=== PATIENT | male | born 1980 | race Caucasian/White ===

== ENCOUNTER 2024-12-02 09:14 | Emergency (ER) | payer OTHER, SELFPAY ==
[2024-12-02 09:16] VITALS: BP 123/83; PULSE 78; RESP 18; TEMP 37.1; O2SAT 98; BMI 29.5
--- NOTE | 2024-12-02 09:32 | VDLE_ITS ---
Reason For Study Reason For Study: Pain RLE RIGHT LEFT GSV is normal. CFV is compressible, spontaneous, phasic, competent, CFV is compressible, spontaneous, phasic, competent and demonstrates normal augmentation. and demonstrates normal augmentation. Rt FV prox is compressible Rt FV mid and distal, Rt PopV, Rt T/P Trunk, Rt PTV, and Rt PeroV are DILATED and NON COMPRESSIBLE consistent with acute DVT Rt SSV is DILATED and NON COMPRESSIBLE consistent with acute SVT. Procedure This is a venous duplex using B-mode, color flow and spectral Doppler. Exam performed portable in ED. A preliminary report was called and/or faxed to Dr. Robertson. VL/Venous Duplex US, Unilateral Interpretation Summary Acute deep vein thrombosis noted in the right femoral vein, popliteal vein, tib ioperoneal trunk vein, posterior tibial vein, peroneal vein. Acute superficial vein thrombosis noted in the right small saphenous vein. Ordering Physician: Ryan Robertson Performed By: María Arora RDCS, RVT
--- NOTE | 2024-12-02 09:32 | EX.ED.DYSGE1 ---
HPI History of Present Illness Chief Complaint: Lower Extremity Injury Narrative Narrative: Patient is a 44-year-old male with a past medical history of DVT who presents to the emergency department the chief complaint of right calf pain and swelling. He states that he noted that this started on Sunday and he notes that this moved to the back of his thigh last night. He states that he recently traveled to [place]. Patient states that his previous DVT was after he stopped running marathons. He states that he is on any blood thinning medications currently. Denies chest pain or shortness of breath [facility] Medical History Hx of deep venous thrombosis Home Medications ?Medication ?Instructions ?Recorded ?Last Taken ?Type apixaban 5 mg (74 tabs) tablets in See Rx Instructions PO .COMPLEX 12/02/24 Unknown Rx a dose pack (Eliquis DVT-PE Treat #74 tabs 30D Start) Allergy/AdvReac Type Severity Reaction Status Date / Time No Known Allergies Allergy Verified 12/02/24 09:15 Social History Smoking Status: Never smoker ROS ROS ED ROS Narrative Constitutional: Denies fevers, chills, headaches Cardiovascular: Denies chest pain Respiratory: Denies shortness of breath Neurological: Denies numbness, weakness, tingling Musculoskeletal: Complains of right calf pain and right lower extremity swelling as noted above Skin: Denies any rashes or lesions EXAM Physical Exam Narrative Exam Narrative: General: Patient was lying in bed rest comfortably did not appear to be in acute distress Head: Atraumatic, normocephalic Eyes: PERRL bilaterally, EOMI bilateral, no conjunctival injection noted Neck: Soft, supple, trachea midline Cardiovascular: Regular rate and rhythm Musculoskeletal: Right lower extremity compartments are soft and compressible, tenderness palpation the posterior calf region on the right side Extremities: +5/5 strength noted in the bilateral upper and lower extremities, DP pulses noted to be +2/4 in the right lower extremity Neurological: Patient follow commands knew that he was at [facility] year is 2024. Sensation grossly intact in the bilateral lower extremities Skin: Warm, dry, intact no rashes or lesions noted Const Vital Signs: 12/02/24 09:16 Temperature 98.7 F Temperature Source Oral Pulse Rate 78 Respiratory Rate 18 Blood Pressure 123/83 H Blood Pressure Mean 96 Pulse Ox 98 Oxygen Delivery Method Room Air MDM MDM MDM Narrative Medical decision making narrative: Patient is a 44-year-old male who presented to the emergency department chief complaint of right lower extremity pain and swelling concern for DVT. On the differential diagnose includes but limited to musculoskeletal strain, DVT, superficial venous thrombosis, thrombophlebitis. Once workup is obtained reviewed he will be reevaluated. Patient does have significant DVT clot burden in his right lower extremity from the right femoral vein mid and distal, right popliteal vein, right T/P trunk right PTV and right paroV are noncompressible consistent with acute DVT he also has right SSV dilated noncompressible consistent with acute superficial venous thrombosis Reached out to Dr. Vera's office spoke with his physician curatorial assistant and they are recommending Eliquis and follow-up with them in the outpatient setting. I discussed this plan with the patient he is agreeable this plan. He is advised that if he falls and hits his head while on blood thinning medications he should go to the emergency department immediately. He was advised that if he cuts his himself he will have prolonged bleeding. Patient was advised that he needs to avoid any type of NSAID for pain control while on this medication as well. He is agreeable this plan as well as significant other bedside all question concerns answered he is discharged home in stable condition. Radiography Diagnostic Testing: Clinical Impression(s) from Imaging Studies Venous Doppler Study 12/02/24 09:32 Interpretation Summary Acute deep vein thrombosis noted in the right femoral vein, popliteal vein, tibioperoneal trunk vein, posterior tibial vein, peroneal vein. Acute superficial vein thrombosis noted in the right small saphenous vein. Ordering Physician: Ryan Robertson Performed By: María Arora, NAZARIO, RVT Discharge Plan Triage Chief Complaint: Lower Extremity Injury ED Provider: Ryan Robertson Dx/Rx/DC Orders Clinical Impression: Deep vein thrombosis (DVT) of right lower extremity Prescriptions: New Eliquis DVT-PE Treat 30D Start 5 mg (74 tabs) tablets,dose pack See Rx Instructions .ROUTE .COMPLEX Qty: 74 0RF Rx Instructions: orally per package directions Primary Care Provider: Care Physician,No Primary Referrals: Care Physician,No Primary [Primary Care Provider] - Sincere Vera MD [Med Staff - Active Staff] - Activity Restrictions/Additional Instructions: Follow-up with Dr. Vera's office. Your ultrasound showed evidence of a blood clot in your right leg. Take the Eliquis as prescribed. If you fall and hit your head while on this medication you need to go to the emergency department immediately. Do not take any form of NSAID such as ibuprofen Aleve Advil etc. for pain control use Tylenol. Return with worsening symptoms or other concerns Print Language: Argentine Disposition Disposition: Home, Self Care
[2024-12-02 11:28] VITALS: BP 119/83; PULSE 68; RESP 18; TEMP 36.6; O2SAT 100
[2024-12-02 11:43] VITALS: PULSE 57
[2024-12-09 16:08] LABS: Anti-Cardiolipin Ab, IgG, Qn < 9 GPL U/mL (0-14); Anti-Cardiolipin Ab, IgM, Qn < 9 MPL U/mL (0-12); Anti-Thrombin 3 AG, Immunol 78 % (72-124); Antithrombin 3 Function 128 % (75-135); Beta-2-Glycoprotein I IgA <9 (0-25); Beta-2-Glycoprotein I IgG <9 (0-20); Beta-2-Glycoprotein I IgM <9 (0-32); Protein C Antigen 76 % (60-150); Protein C, Functional 87 % (73-180)
== END 2024-12-02 11:45 | disposition home or self-care (01) ==
PROVIDERS: Emergency Provider Emergency Medicine; Visit Provider Emergency Medicine
DX: I82.411 Acute embolism and thrombosis of right femoral vein (principal); I82.431 Acute embolism and thrombosis of right popliteal vein; I82.451 Acute embolism and thrombosis of right peroneal vein; I82.441 Acute embolism and thrombosis of right tibial vein; I82.811 Embolism and thrombosis of superficial veins of right lower extremity; Z86.718 Personal history of other venous thrombosis and embolism
CPT/HCPCS: 81240; 81241; 85300; 85301; 85302; 85303; 86146; 86147; 93971; 99282